=== PATIENT | male | born 1985 | race Caucasian/White ===

== ENCOUNTER 2018-11-18 10:57 | Emergency (ER) | payer SELFPAY ==
[~2018-11-18] VITALS: Ht 172.7 cm; Wt 68.0 kg
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
[2018-11-18 12:03] VITALS: BP 125/54
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
--- NOTE | 2018-11-18 12:40 | NUR ---
ED Nurse Note: Pt went down for CT.
--- NOTE | 2018-11-18 12:41 | NUR ---
ED Nurse Note: Pt came back from CT via wheelchair.
[2018-11-18 13:22] VITALS: BP 122/75
--- NOTE | 2018-11-18 13:24 | NUR ---
ED Nurse Note: Offered pt discharge instructions. Pt denied receiving discharge instructions or paperwork. No acute distress noted. ID band removed. Left ER w/ all belongings and w/ a steady gait.
--- NOTE | 2018-11-19 08:06 | Diagnostic Imaging Report ---
Indication: Altered mental status, alcohol intoxication, trauma Technique: Continuous helical CT scanning of the head was performed utilizing automated exposure control without intravenous contrast material. Axial and coronal reconstructions were obtained. Comparison: None CT dose: Total DLP 1244 mGycm; CTDI vol 70.5 mGy Findings: There is no acute intracranial hemorrhage, mass effect or cortical edema. There is no shift of midline structures. No cisternal or sulcal effacement. Ventricles size and configuration are within normal limits for age. There is no depressed calvarial fracture. No/scalp hematoma identified. Mild paranasal sinus disease. Mastoid air cells are clear. Imaged portions of the orbits grossly unremarkable. Impression: No evidence of acute intracranial hemorrhage, mass effect or cortical edema. MRI may be obtained for more sensitive evaluation as clinically indicated. Mild ethmoid sinus disease. No depressed calvarial fracture. This corresponds with the statrad preliminary report. The CT scanner at [facility] is accredited by the [employer] and the scans are performed using protocols designed to limit radiation exposure to as low as reasonably achievable to attain images of sufficient resolution adequate for diagnostic evaluation.
== END 2018-11-18 13:25 | disposition home or self-care (01) ==
LOC: EDBD 10:57 → EMR 11:20
DX: S00.83XA Contusion of other part of head, initial encounter (principal); Y04.0XXA Assault by unarmed brawl or fight, initial encounter; Y92.89 Other specified places as the place of occurrence of the external cause; F10.129 Alcohol abuse with intoxication, unspecified; J32.2 Chronic ethmoidal sinusitis
CPT/HCPCS: 70450; 99284

== ENCOUNTER 2020-01-06 20:57 | Emergency (ER) | payer MEDICAID ==
[~2020-01-06] VITALS: Ht 177.8 cm; Wt 70.3 kg
--- NOTE | 2020-01-06 22:15 | NUR ---
ED Nurse Note: pt presents to ED stating that he feels he is withdrawing, pt states he drank 3 beers today, took GHB yesterday and also drank alcohol. pt reports dizziness and nausea without vomiting. denies any pain at this time
[2020-01-06 22:16] VITALS: BP 118/77
--- NOTE | 2020-01-06 22:36 | Emergency Room Report ---
History of Present Illness General Chief Complaint: Substance Abuse Source: Patient Present Illness HPI This a 34-year-old male with a history of polysubstance abuse. He presents with chief complaint of substance abuse. He said he used GHB, alcohol, cocaine in the past. He said "life sucks." He said he has been in rehab before. He said he felt depressed but no particular plan. Not homicidal. No delusional. He was just at [facility] earlier today because he said he fell hit his head. He did not mention any suicidal thoughts or homicidal thought. No hallucination. He said he was recently in a psychiatric facility. He has been in multiple facilities. Also been to multiple hospitals for his drug use. Allergies: Coded Allergies: No Known Allergies (Unverified , 11/18/18) Patient History Past Medical History: see triage record, old chart reviewed Past Surgical History: none Family History: none Social History: tobacco use, ETOH, drug use Immunizations: other Reviewed Nursing Documentation: PMH: Agreed; PSxH: Agreed Review of Systems ENT: Denies: sore throat Cardiovascular: Denies: chest pain, palpitations Gastrointestinal/Abdominal: Denies: nausea, vomiting, diarrhea Musculoskeletal: Denies: back problems Skin: Denies: rash Psychiatric: Reports: depression Neurological: Denies: FERGUSON, seizures All Other Systems: negative except mentioned in HPI Physical Exam Vital Signs Date Time Temp Pulse Resp B/P (MAP) Pulse Ox O2 Delivery O2 Flow Rate FiO2 01/06/20 21:07 98.1 84 16 118/77 (91) 97 Room Air Vitals normal Sp02 EP Interpretation: reviewed, normal General Appearance: alert/responsive, no apparent distress, non-toxic Head: normocephalic, atraumatic Eyes: PERRL, EOMI ENT: oropharynx normal Neck: supple/symm/no masses Respiratory: effort normal, no rhonchi, no wheezing Cardiovascular: no murmur, gallop, rub Gastrointestinal: non-tender, no mass, non-distended, no rebound/guarding, normal bowel sounds Musculoskeletal: gait & station normal Neurologic: oriented x3, sensory intact, motor strength/tone normal Psychiatric: other - Depressed affect Suicide Risk Assessment: Suicidal Ideation: No Had intent to initiate attempt: No Pt's plan for suicide attempt: No Has means to complete attempt: No Skin: no rash, normal palpation Medical Decision Making Diagnostic Impression: Primary Impression: Substance abuse Additional Impression: Depression Qualified Codes: F32.2 - Major depressive disorder, single episode, severe without psychotic features ER Course Presents with depression secondary to substance abuse. No particular plan. No criteria for 5150. He showed no evidence of any withdrawal symptoms here. Will discharge home with outpatient referral for rehab. This patient is a chronic risk of self injury due to poor impulse control, limited coping skills, and judgment intermittently impaired by intoxication. I believe that the available clinical evidence to suggest that these characteristics derived primarily from personality disorder and are likely very stable over time. Hospitalization would likely attenuate risk of self-harm only during longterm period, without lasting risk reduction. Serious self-harm , while possible, would likely be inadvertent, and because of impulsivity, and foreseeable. For these reasons, I do not believe hospitalization would provide meaningful reduction in risk of self-harm. Last Vital Signs Date Time Temp Pulse Resp B/P (MAP) Pulse Ox O2 Delivery O2 Flow Rate FiO2 01/06/20 22:16 84 16 Room Air 01/06/20 22:16 118/77 97 01/06/20 21:07 98.1 Status: improved Disposition: HOME, SELF-CARE Condition: Stable Patient Instructions: Substance Use Disorder Additional Instructions: Abstain from drugs and alcohol. Follow-up with mental health within a week. Follow-up with rehab. Return if worse. Justyn Hogue MD Jan 06, 2020 22:36
[2020-01-06 22:40] VITALS: BP 132/85
--- NOTE | 2020-01-06 22:40 | NUR ---
ER DISCHARGE NOTE: Patient is cleared to be discharged per ERMD, pt is aox4, on room air, with stable vital signs. pt was given dc instructions, pt was able to verbalize understanding, pt id band removed without complications. pt is able to ambulate with steady gait. pt took all belongings.
== END 2020-01-06 22:40 | disposition home or self-care (01) ==
LOC: EMR 22:40
DX: F19.10 Other psychoactive substance abuse, uncomplicated (principal); F32.2 Major depressive disorder, single episode, severe without psychotic features
CPT/HCPCS: 99281